=== PATIENT | male | born 1955 | race Caucasian/White ===

== ENCOUNTER 2019-03-24 06:33 | Emergency (ER) | payer OTHER ==
[2019-03-24 07:08] VITALS: BMI 32.3
[2019-03-24] MEDS ORDERED: LIDOCAINE 5% TOPICAL PATCH TP ONE (08:01)
[2019-03-24] MEDS ORDERED: CYCLOBENZAPRINE HCL 10 MG TABLET (FP) PO ONE (08:01)
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
[2019-03-24] MEDS ORDERED: CYCLOBENZAPRINE HCL 10 MG TABLET (FP) ONE (08:06)
[2019-03-24] MEDS ORDERED: LIDOCAINE 5% TOPICAL PATCH ONE (08:06)
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
[2019-03-24] MEDS ORDERED: IBUPROFEN 600 MG TABLET (FP) PO ONE ×2 (08:35→08:40)
[2019-03-24 08:54] VITALS: BP 156/65; PULSE 86; TEMP 98.5
[2019-03-24] MEDS ORDERED: LIDOCAINE PATCH REMOVAL MC SCH (22:00)
== END 2019-03-24 09:14 | disposition home or self-care (01) ==
LOC: JER 06:33
DX: M25.511 Pain in right shoulder (principal); M54.2 Cervicalgia; M25.512 Pain in left shoulder; V43.52XA Car driver injured in collision with other type car in traffic accident, initial encounter; Y92.414 Local residential or business street as the place of occurrence of the external cause; Y93.89 Activity, other specified; Y99.8 Other external cause status; I10 Essential (primary) hypertension; Z79.82 Long term (current) use of aspirin
CPT/HCPCS: 70450-TC; 71045-TC-FY; 72125-TC; 73030-TC-LT-FY; 73030-TC-RT-FY; 99282-25